=== PATIENT | male | born 1960 | race Caucasian/White ===

== ENCOUNTER 2019-08-06 13:08 | Day surgery (SDC) | payer BC, MEDICARE ==
[~2019-08-06] VITALS: Ht 170.2 cm; Wt 76.8 kg
[2019-08-06 14:22] VITALS: BP 130/63; PULSE 85; TEMP 98.6
[2019-08-06] MEDS ORDERED: PRINIVIL20 MG PO (14:29)
[2019-08-06] MEDS ORDERED: PROTONIX 40MG T40 MG PO (14:30)
[2019-08-06] MEDS ORDERED: LOPRESSOR 225 MG/TAB PO (14:30)
[2019-08-06] MEDS ORDERED: CRESTOR 10MG10 MG PO (14:31)
[2019-08-06] MEDS ORDERED: ASPIRIN E.C. 8181 MG PO (14:31)
[2019-08-06] MEDS ORDERED: PLAVIX 75MG TAB75 MG PO (14:32)
[2019-08-06] MEDS ORDERED: NEURONTIN400 MG/CAP PO (14:33)
[2019-08-06] MEDS ORDERED: HUMULIN 70/3100 U/M1 SQ (14:36)
[2019-08-06 20:21] VITALS: BP 151/75; PULSE 77
[2019-08-06 20:51] VITALS: BP 132/68; PULSE 71
[2019-08-06 21:06] VITALS: BP 140/75; PULSE 73
--- NOTE | 2019-08-06 21:30 | NUR ---
Pt arrived via gurney with JAMEE Medina and dtr at bedside. Alert and oriented. c/o pain to rt toe amputation surgery, rate 4/10, PRN pain meds administered as ordered, pt stated relief. Rt foot post op dressing in place, no drainage noted. VS stable. Pt urinated without complaints. BG 108. Snack and drink provided to pt without any c/o nausea. At 2130, discharge paperwork reviewed and given to pt and pt dtr. Pt verbalized understanding of discharge paperwork. IV to LFA removed, catheter tip intact. JAMEE Joshi assisted pt via wheelchair.
[2019-08-06 21:36] VITALS: BP 125/68; PULSE 72; TEMP 97.5
== END 2019-08-06 21:30 ==
LOC: SDCO 13:08
DX: I96 Gangrene, not elsewhere classified (principal); E11.9 Type 2 diabetes mellitus without complications; I50.9 Heart failure, unspecified; I25.10 Atherosclerotic heart disease of native coronary artery without angina pectoris; I25.2 Old myocardial infarction; I10 Essential (primary) hypertension; Z79.82 Long term (current) use of aspirin; Z79.02 Long term (current) use of antithrombotics/antiplatelets; Z79.4 Long term (current) use of insulin; Z90.49 Acquired absence of other specified parts of digestive tract; Z80.9 Family history of malignant neoplasm, unspecified; Z87.891 Personal history of nicotine dependence
CPT/HCPCS: J0690; J2250; J2405; J2704; J2795; J3010